=== PATIENT | male | born 1950 | race Caucasian/White ===

== ENCOUNTER → 2017-10-18 | Outpatient (CLI) | payer BC, MEDICARE ==
[~2017-10-18] MED LIST: ATORVASTATIN CA20 MG PO; CELEBREX100 MG PO; CYMBALTA60 MG PO; DIGOXIN125 MCG PO; GABAPENTIN300 MG PO; GLIMEPIRIDE2 MG PO; GLUCOPHAGE850 MG PO; HYDROCHLOROTHIA25 MG PO; LASIX40 MG PO; LOVAZA1 GM PO; LYRICA50 MG PO; MIRTAZAPINE15 MG PO; MYRBETRIQ25 MG PO; NORVASC5 MG PO; OMEGA-31000 MG PO; PANTOPRAZOLE SO40 MG PO; POTASSIUM CHLO10 ME1 PO; PRISTIQ ER50 MG PO; REXULTI PO; TESTOSTERO200 MG/1 M; TOPROL XL50 MG PO; TRADJENTA5 MG PO; TRAZODONE HCL50 MG PO; ULTRAM 50MG50 MG PO; WARFARIN SODIUM2 MG PO; XARELTO20 MG PO; ZESTRIL20 MG PO; ZOLPIDEM TARTRA10 MG PO
== END ==
LOC: SLEEP 20:20
PROVIDERS: ATTEND Internal Medicine
DX: G47.33 Obstructive sleep apnea (adult) (pediatric) (principal)
CPT/HCPCS: 95810